=== PATIENT | male | born 1970 | race Caucasian/White ===

== ENCOUNTER 2019-11-21 13:08 | Outpatient (CLI) | payer OTHER, SELFPAY | END 2019-11-21 13:09 | disposition home or self-care (01) | LOC: ANHAUDIO 13:09 | DX: H69.83 Other specified disorders of Eustachian tube, bilateral (principal); H90.6 Mixed conductive and sensorineural hearing loss, bilateral | CPT/HCPCS: 92557; 92567 ==

== ENCOUNTER 2020-03-22 11:00 | Outpatient (RCR) | payer OTHER, SELFPAY | END 2020-03-22 23:59 | disposition home or self-care (01) | LOC: ANHAUDIO 11:00 | DX: Z46.1 Encounter for fitting and adjustment of hearing aid (principal) | CPT/HCPCS: 99199; V5160; V5261; V5264 ==

== ENCOUNTER 2022-02-16 08:43 | Outpatient (CLI) | payer OTHER, SELFPAY | END 2022-02-16 08:44 | disposition home or self-care (01) | LOC: ANHAUDIO 08:44 | PROVIDERS: Visit Provider Family Medicine | DX: H90.6 Mixed conductive and sensorineural hearing loss, bilateral (principal) | CPT/HCPCS: 92557; 92567 ==

== ENCOUNTER 2022-03-28 14:43 | Outpatient (RCR) | payer OTHER, SELFPAY | END 2022-03-28 23:59 | disposition home or self-care (01) | LOC: ANHAUDIO 14:43 | PROVIDERS: Visit Provider Family Medicine | DX: Z46.1 Encounter for fitting and adjustment of hearing aid (principal) | CPT/HCPCS: V5264 ==

== ENCOUNTER 2023-02-21 10:56 | Outpatient (RCR) | payer OTHER, SELFPAY | END 2023-02-21 23:59 | disposition home or self-care (01) | LOC: ANHAUDIO 10:56 | PROVIDERS: Visit Provider Family Medicine | DX: Z46.1 Encounter for fitting and adjustment of hearing aid (principal) | CPT/HCPCS: 92593; 99199 ==